=== PATIENT | female | born 1940 | race African-American/Black ===

== ENCOUNTER 2017-02-22 10:58 | Emergency (ER) | payer MEDICARE, OTHER ==
[~2017-02-22 10:58] MED LIST: AKWA TEARS OU; ATIVAN0.5 MG PO; ATROVENT (00.2 MG/ML INH; CATAPRES0.1 MG PO; CITALOPRAM HBR20 MG PO; DALIRESP500 MCG PO; FLONASE ALLER15.8 ML INH; GABAPENTIN100 MG PO; HYOSCYAMINE0.125 M1 PO; LEVOTHYROXINE112 MCG PO; LIDO; LIPITOR40 MG PO; MAALOX; MIRALAX17 GM PO; MUCINEX600 MG PO; NYSTATIN SUSP1 ML/ML PO; OCEAN NASAL SPRAY INH; OMEPRAZOLE 20MG20 MG PO; PROAIR HFA8.5 GM INH; PULMICORT0.5 MG/2 M NEB; SPIRIVA 18MCG18 MCG INH; TRAMADOL HCL50 MG PO; TYLENOL500 MG PO; VERAPAMIL ER180 M1 PO; XOPENEX1.25 MG/3 INH; [UNRECOGNIZED DRUG - OTHER]; [UNRECOGNIZED DRUG - OTHER] AU; [UNRECOGNIZED DRUG - OTHER] OU
[2017-02-22 12:19] LABS: BASOPHIL 0.2 % (0-2); EOSINOPHIL 0.8 % (0-7); HCT 28.9 % (37.0-47.0); HGB 9.1 g/dl (12.5-16.0); LYMPHOCYTE 19.5 % (15-48); MCHC 31.5 g/dL (32.0-36.0); MCV 85.8 fL (78.0-100.0); MONOCYTE 8.4 % (0-12); MPV 9.8 fL (6.0-9.5); NEUTROPHIL 71.1 % (41-80); PLT 309 K/uL (150-400); RBC 3.37 M/uL (4.20-5.40); RDW 14.5 % (11.5-14.0); WBC 9.5 K/uL (4.0-10.5)
[2017-02-22 12:31] LABS: ALBUMIN 4.1 g/dL (3.4-4.8); BILIRUBIN - TOTAL 0.2 mg/dL (0.1-1.0); CREATININE 0.8 mg/dL (0.5-1.0); GLOBULIN (CALCULATION) 2.5 g/dL (2.2-4.2); POTASSIUM 2.8 mmol/L (3.5-5.1); TOTAL PROTEIN 6.6 g/dL (6.4-8.3)
[2017-02-22 13:06] LABS: BILIRUBIN NEGATIVE (NEGATIVE); BLOOD TRACE-INTACT Ery/uL (NEGATIVE); CLARITY CLEAR (CLEAR); COLOR YELLOW (YELLOW); GLUCOSE (U) NORMAL (NORMAL); KETONE (U) NEGATIVE (NEGATIVE); LEUKOCYTES NEGATIVE Leu/uL (NEGATIVE); NITRITE NEGATIVE (NEGATIVE); PROTEIN NEGATIVE (NEGATIVE); SPECIFIC GRAVITY <=1.005 (1.001-1.030); UROBILINOGEN 0.2 mg/dL (0.2-1.0); pH 8.5 (5.0-9.0)
[2017-02-22 13:08] LABS: URINARY WBC RARE
[2017-05-25] MEDS ORDERED: LEVSIN-SL0.125 MG SL (10:56)
[2017-05-25] MEDS ORDERED: SYNTHROID125 MCG PO (10:57)
[2017-05-25] MEDS ORDERED: XOPENEX (00.63 MG/3 INH (10:57)
[2017-05-25] MEDS ORDERED: ATROVENT (00.2 MG/ML INH (10:57)
[2017-05-25] MEDS ORDERED: MUCINEX 600MG600 MG PO (10:58)
[2017-05-25] MEDS ORDERED: GLUCOPHAGE500 MG PO (10:58)
[2017-05-25] MEDS ORDERED: ATIVAN0.5 MG PO (10:58)
[2017-05-25] MEDS ORDERED: PRILOSEC20 MG PO (10:59)
[2017-05-25] MEDS ORDERED: PROLIA60 MG/1 ML SC (10:59)
[2017-05-25] MEDS ORDERED: PHENERGAN12.5 M1 PO (11:00)
[2017-05-25] MEDS ORDERED: TRAMADOL HCL50 MG PO (11:00)
[2017-05-25] MEDS ORDERED: VENTOLIN HFA IN18 GM INH (11:01)
[2017-05-25] MEDS ORDERED: VERAPAMIL ER240 MG PO (11:01)
[2017-05-25] MEDS ORDERED: FLEXERIL10 MG PO (11:02)
[2017-05-25] MEDS ORDERED: ATORVASTATIN CA20 MG PO (11:02)
[2017-05-25] MEDS ORDERED: CITALOPRAM 40MG40 MG PO (11:02)
[2017-05-25] MEDS ORDERED: VIBRAMYCIN100 MG PO (11:03)
[2017-05-25] MEDS ORDERED: DALIRESP500 MCG PO (11:03)
[2017-05-25] MEDS ORDERED: FLONASE ALLER15.8 ML (11:05)
[2017-05-25] MEDS ORDERED: PREDNISONE TAPER (11:07)
[2017-05-25] MEDS ORDERED: TOPROL XL 50 MG50 MG PO (11:08)
== END 2017-02-22 18:26 | disposition home or self-care (01) ==
LOC: FER 10:58
PROVIDERS: Nurse Practitioner
DX: E11.649 Type 2 diabetes mellitus with hypoglycemia without coma (principal); J44.9 Chronic obstructive pulmonary disease, unspecified; Z88.0 Allergy status to penicillin; Z88.6 Allergy status to analgesic agent; Z87.891 Personal history of nicotine dependence; Z79.84 Long term (current) use of oral hypoglycemic drugs; Z79.899 Other long term (current) drug therapy
CPT/HCPCS: 36415; 70450; 80053; 81001; 83880; 84443; 85025; 85651; 87804; 87899; 93005; 94640; J1885; J2405